=== PATIENT | male | born 1980 | race Caucasian/White ===

== ENCOUNTER 2016-12-13 15:09 | Emergency (ER) | payer MEDICAID ==
[2016-12-13 15:34] VITALS: BP 161/87
--- NOTE | 2016-12-13 17:18 | UC ---
Lower Extremity/Ankle HPI - HPI Summary HPI Summary: 36 yo male with left great toe pain x days no trauma swollen and red hurts to wt bear - History of Current Complaint Chief Complaint: UCLowerExtremity Stated Complaint: LEFT FOOT PAIN Time Seen by Provider: 12/13/16 17:10 Hx Obtained From: Patient Onset/Duration: Gradual Onset, Lasting Days Severity Initially: Mild Severity Currently: Moderate Pain Intensity: 6 Pain Scale Used: 0-10 Numeric Aggravating Factor(s): Standing, Ambulation Alleviating Factor(s): Rest, OTC Meds Able to Bear Weight: Yes - Allergies/Home Medications Allergies/Adverse Reactions: Allergies Allergy/AdvReac Type Severity Reaction Status Date / Time No Known Allergies Allergy Verified 12/13/16 15:31 Home Medications: Home Medications Ibuprofen TAB* [Advil TAB*] 400 mg PO Q8H PRN 12/13/16 [History Confirmed ] PMH/Surg Hx/FS Hx/Imm Hx Previously Healthy: Yes - Surgical History Surgical History: Yes Surgery Procedure, Year, and Place: [place] teeth 2016 - Family History Known Family History: Positive: Hypertension - Social History Alcohol Use: Rare Substance Use Type: None Smoking Status (MU): Never Smoked Tobacco Review of Systems Constitutional: Negative Skin: Negative Eyes: Negative ENT: Negative Respiratory: Negative Cardiovascular: Negative Gastrointestinal: Negative Genitourinary: Negative Motor: Negative Neurovascular: Negative Musculoskeletal: Arthralgia Neurological: Negative Psychological: Negative All Other Systems Reviewed And Are Negative: Yes Physical Exam Triage Information Reviewed: Yes Appearance: Well-Appearing, No Pain Distress, Well-Nourished Vital Signs: Initial Vital Signs Temp 97.6 F 12/13/16 15:27 Pulse 93 12/13/16 15:27 Resp 20 12/13/16 15:27 BP 161/87 12/13/16 15:27 Pulse Ox 99 12/13/16 15:27 Vital Signs Reviewed: Yes Eyes: Positive: Conjunctiva Clear ENT: Positive: Hearing grossly normal. Negative: Nasal congestion, Nasal drainage, Tonsillar exudate, Trismus, Muffled/hoarse voice Neck: Positive: Supple, Nontender Respiratory: Positive: Lungs clear, Normal breath sounds, No respiratory distress, No accessory muscle use Cardiovascular: Positive: RRR, No Murmur Musculoskeletal: Positive: Other: - see image Neurological: Positive: Alert Psychological Exam: Normal Skin Exam: Normal Lower Extremity Course/Dx - Course Course Of Treatment: pt declines xr - Differential Dx/Diagnosis Provider Diagnoses: left great toe pain/suspect gout Discharge - Discharge Plan Condition: Stable Disposition: HOME Prescriptions: Prednisone 60 mg PO DAILY #6 tab Patient Education Materials: Low Purine Diet (ED), Gout (ED) Referrals: Remington Garcia MD [Primary Care Provider] - 2 Weeks (sooner if not improved BP needs rechecking) Additional Instructions: I suspect gout post op shoe recheck early next week if not better BP was high and should be followed Images Feet (Multiple View): 1 - red/swollen
[2016-12-13] MEDS ORDERED: predniSONE TAB* 20 MG PO ONE (17:20)
--- NOTE | 2016-12-14 07:41 | UC ---
Progress - Progress Note Progress Note: please have the pt. stop the prednisone will call in Indocin 50 mg tid as needed for pain and inflammation do not take ibuprofen with this medication follow up with your pcp in 5 days , sooner if pain is not better in 2 days .
== END 2016-12-13 17:28 | disposition home or self-care (01) ==
LOC: UCCORT 15:09
DX: M79.675 Pain in left toe(s) (principal)
CPT/HCPCS: 99203; G0463; J7512